=== PATIENT | female | born 1950 | race Caucasian/White ===

== ENCOUNTER → 2024-05-10 11:58 | Outpatient (REF) | payer OTHER, SELFPAY | LOC: WDC 11:58 | PROVIDERS: ATTENDING PHYSICIAN Family Medicine | DX: Z12.31 Encounter for screening mammogram for malignant neoplasm of breast (principal) | CPT/HCPCS: 77063; 77067 ==

== ENCOUNTER → 2025-05-23 12:37 | Outpatient (REF) | payer OTHER, SELFPAY | LOC: WDC 12:37 | PROVIDERS: ATTENDING PHYSICIAN Family Medicine | DX: Z12.31 Encounter for screening mammogram for malignant neoplasm of breast (principal) | CPT/HCPCS: 77063; 77067 ==